=== PATIENT | female | born 1965 | race Caucasian/White ===

== ENCOUNTER 2018-04-03 05:27 | Day surgery (SDC) | payer BC ==
[2018-04-03] MEDS ORDERED: ROBINUL IV ONE (05:28)
[2018-04-03] MEDS ORDERED: DIPRIVAN 200 MG/20 ML IV ONE (05:28)
[2018-04-03] MEDS ORDERED: Ketamine HCl 50 MG/ML IJ ONE (05:28)
[2018-04-03] MEDS ORDERED: Lactated Ringers 1,000 ML IV ONE (06:49)
[2018-04-03] MEDS ORDERED: Lactated Ringers 1,000 ML IV SCH (07:00)
[2018-04-03 08:34] VITALS: O2SAT 97
[2018-04-03 08:44] VITALS: BP 132/74; PULSE 72
--- NOTE | 2018-04-03 13:03 | OP ---
SURGERY DATE/TIME: 04/03/2018 0714 PREOPERATIVE DIAGNOSIS: Anal pain and screening exam. POSTOPERATIVE DIAGNOSIS: Normal colon. PROCEDURE: Colonoscopy. SURGEON: Dr. Vidal. ANESTHESIA: MAC. Medications given by anesthesia department. HISTORY: The patient is a 52 year-old white female who reports she has been having problems with pain in the rectal region over the past several months. She reports that she will be just lying in bed at times when she will have a terrible pain in the rectum which will last anywhere from 5 to 15 minutes. She reports there is no association with bowel movements. The patient was also noted to be over the age of 50 and had not had a screening colonoscopy previously. The patient was appraised of the risks of the procedure including the risk of perforation, phlebitis, untoward reaction to medication, bleeding and missed lesions. The patient verbalized her understanding and desired to have the procedure performed. DESCRIPTION OF PROCEDURE: The patient was given the medications by the anesthesia department. She had continuous pulse oximetry, ECG monitoring, intermittent blood pressure monitoring and tidal CO2 monitoring during the examination. She was placed in the left lateral decubitus position. A digital rectal examination was performed and revealed normal anal sphincter tone, no masses and normal anal sphincter tone. The flexible Olympus pediatric colonoscope was used to intubate the rectum. A view of the colon was developed sequentially to the cecum. Upon insertion and withdrawal, including a retroflex view in the rectum, no mucosal lesions were encountered. The scope was removed from the patient who tolerated the procedure well and was sent back to OP recovery in good condition. The prep was noted to be fair to adequate.
== END 2018-04-03 08:51 | disposition home or self-care (01) ==
LOC: SDC 05:27
PROVIDERS: ATTEND Family Medicine
DX: Z12.11 Encounter for screening for malignant neoplasm of colon (principal); K62.89 Other specified diseases of anus and rectum
CPT/HCPCS: 94250; J2704

== ENCOUNTER 2019-01-17 23:10 | Emergency (ER) | payer BC ==
[2019-01-17] MEDS ORDERED: TORAdol 30 mg Injection IM ONE (23:41)
[2019-01-17] MEDS ORDERED: BABY ASPIRIN 81 MG CHEW ONE (23:48)
[2019-01-17] MEDS ORDERED: TORAdol 30 mg Injection ONE (23:49)
[2019-01-18 00:07] LABS: ALBUMIN 4.9 g/dL (3.5-5.0); ALKALINE PHOSPHATASE 74 U/L (38-126); ANION GAP 18.5 MEQ/L (5-15); BLOOD UREA NITROGEN 13 mg/dL (7-17); CHLORIDE 110 mmol/L (98-107); Calcium 9.8 mg/dL (8.4-10.2); Carbon Dioxide 22 mmol/L (22-30); Creatinine 1 0.76 mg/dL (0.52-1.04); Glucose 85 mg/dL (74-106); Potassium 3.5 mmol/L (3.5-5.1); SGOT/AST 24 U/L (14-36); SGPT/ALT 15 U/L (0-35); SODIUM 147 mmol/L (137-145); Total Protein 8.1 g/dL (6.3-8.2)
--- NOTE | 2019-01-18 00:15 | ERPHSYRPT ---
- History of Present Illness Time Seen by Provider: 01/17/19 23:25 Source: patient, police Exam Limitations: no limitations Patient Subjective Stated Complaint: Patient states shewas pulled over by police. Patient statesw chest pain stated then, checo reports taking nitro PRN Triage Nursing Assessment: checo ambulated inot ER with police present times two. Checo tearful and reporting chest pain Physician History: 53yo with anxiety/neuropathy and palpitations off and on is brought in ER by police for medical clearance. 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 patient reports having mild dull across chest pain with no agg/ releiving factors and not associated with any SOB. patient says that she got anxious when police pulled over her and she got really anxious. she does get CP whenever gets nervous. no fever/chill/cough. 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 ) Severity: mild Associated Symptoms: chest pain Allergies/Adverse Reactions: morphine Allergy (Intermediate, Verified 01/17/19 23:24) Itching oxycodone Allergy (Intermediate, Verified 01/17/19 23:24) Itching Penicillins Allergy (Intermediate, Verified 01/17/19 23:24) Itching Sulfa (Sulfonamide Antibiotics) Allergy (Intermediate, Verified 01/17/19 23:24) Itching tramadol Allergy (Intermediate, Verified 01/17/19 23:24) Itching Home Medications: Bupropion HCl Xl 150 mg [Wellbutrin XL 150 MG] 150 mg PO BID 06/21/14 [ History] Gabapentin 300 mg PO QID 06/21/14 [History] Quetiapine Fumarate [Seroquel] 50 mg PO DAILY 06/21/14 [History] clonazePAM [Klonopin] 2 mg PO BID 06/21/14 [History] Venlafaxine HCl [Effexor Xr] 150 mg PO BID 03/29/18 [History] Hx Tetanus, Diphtheria Vaccination/Date Given: Yes Hx Influenza Vaccination/Date Given: No Hx Pneumococcal Vaccination/Date Given: No Immunizations Up to Date: Yes - Review of Systems Constitutional: No Symptoms Eyes: No Symptoms Ears, Nose, & Throat: No Symptoms Respiratory: No Symptoms Cardiac: Chest Pain Abdominal/Gastrointestinal: No Symptoms Musculoskeletal: No Symptoms Skin: No Symptoms Neurological: No Symptoms Psychological: Anxiety, No Drug Abuse, No Suicidal Ideations, No Homicidal Ideations Endocrine: No Symptoms Hematologic/Lymphatic: No Symptoms - Past Medical History Pertinent Past Medical History: Yes Neurological History: Peripheral Neuropathy, TIA ENT History: No Pertinent History, Glaucoma Cardiac History: No Pertinent History Respiratory History: No Pertinent History Endocrine Medical History: No Pertinent History Musculoskeletal History: No Pertinent History GI Medical History: Hernia, Polyps History: No Pertinent History Psycho-Social History: Anxiety Female Reproductive Disorders: Abnormal Uterine Bleeding - Past Surgical History Past Surgical History: Yes Neuro Surgical History: No Pertinent History Cardiac: No Pertinent History Respiratory: No Pertinent History Gastrointestinal: Appendectomy Genitourinary: No Pertinent History Musculoskeletal: Other Female Surgical History: Other Other Surgical History: Right eye removed d/t glaucoma. tub al reversal, occular implant, plantar faciatis, tarsal tunnel. - Social History Smoking Status: Current every day smoker How long have you smoked: yes Exposure to second hand smoke: Yes Alcohol Use: None Drug Use: none Patient Lives Alone: No Significant Family History: no pertinent family hx - Female History Hx Now: No - Nursing Vital Signs Nursing Vital Signs: Initial Vital Signs Temperature 98 F 01/17/19 23:13 Pulse Rate 117 H 01/17/19 23:13 Respiratory Rate 20 01/17/19 23:13 Blood Pressure 185/104 01/17/19 23:13 O2 Sat by Pulse Oximetry 96 01/17/19 23:13 Pain Scale Pain Intensity 5 - Physical Exam General Appearance: no apparent distress, anxiety Eye Exam: PERRL/EOMI, eyes nml inspection Ears, Nose, Throat Exam: normal ENT inspection, pharynx normal Neck Exam: normal inspection, non-tender, supple, full range of motion Respiratory Exam: normal breath sounds, chest tenderness, lungs clear Cardiovascular Exam: regular rate/rhythm, normal heart sounds, normal peripheral pulses Gastrointestinal/Abdomen Exam: soft, normal bowel sounds, tenderness Back Exam: normal inspection, normal range of motion Extremity Exam: normal inspection, normal range of motion Neurologic Exam: alert, oriented x 3, cooperative, associate relations specialist II-XII nml as tested Skin Exam: normal color SpO2 Interpretation: normal SpO2: 96 O2 Delivery: Room Air - Course Nursing assessment & vital signs reviewed: Yes EKG Interpreted by Me: RATE (93), Sinus Rhythm, NORMAL AXIS, Non-specific ST Changes Ordered Tests: Active Orders 24 hr Category Date Time Status CHEST 1 VIEW (PORTABLE) Stat Exams 01/17/19 23:38 Ordered CBC W DIFF Stat Lab 01/17/19 23:37 Ordered CMP Stat Lab 01/17/19 23:45 Completed ETHYL ALCOHOL Routine Lab 01/17/19 23:45 Completed TROPONIN Q3H Lab 01/17/19 23:45 Ordered TROPONIN Q3H Lab 01/18/19 02:45 Ordered TROPONIN Q3H Lab 01/18/19 05:45 Ordered TROPONIN Q3H Lab 01/18/19 08:45 Ordered TROPONIN Q3H Lab 01/18/19 11:45 Ordered Urine Triage Profile Stat Lab 01/17/19 Uncollected Medication Summary Generic Name Dose Route Start Last Admin Trade Name Freq PRN Reason Stop Dose Admin Aspirin 325 mg 01/18/19 10:00 Ecotrin 325 Mg PO 02/17/19 09:59 QAM BRITTANEY Discontinued Medications Generic Name Dose Route Start Last Admin Trade Name Freq PRN Reason Stop Dose Admin Aspirin Confirm 01/17/19 23:48 Baby Aspirin 81 Mg Chew Administered 01/17/19 23:49 Dose 81 mg .ROUTE .STK-MED ONE Ketorolac Tromethamine 30 mg 01/17/19 23:41 01/17/19 23:49 Toradol 30 Mg Injection IM 01/17/19 23:42 30 mg STAT ONE Administration Ketorolac Tromethamine Confirm 01/17/19 23:49 Toradol 30 Mg Injection Administered 01/17/19 23:50 Dose 30 mg .ROUTE .STK-MED ONE Lab/Rad Data: Laboratory Result Diagrams 01/17/19 23:45 Laboratory Results 01/17/19 01/17/19 Range/Units 23:45 23:45 Sodium 147 H (137-145) mmol/L Potassium 3.5 (3.5-5.1) mmol/L Chloride 110 H (98-107) mmol/L Carbon Dioxide 22 (22-30) mmol/L Anion Gap 18.5 H (5-15) MEQ/L BUN 13 (7-17) mg/dL Creatinine 0.76 (0.52-1.04) mg/dL Estimated GFR > 60.0 ML/MIN Glucose 85 (74-106) mg/dL Calcium 9.8 (8.4-10.2) mg/dL Total Bilirubin 0.30 (0.2-1.3) mg/dL AST 24 (14-36) U/L ALT 15 (0-35) U/L Alkaline Phosphatase 74 (38-126) U/L Serum Total Protein 8.1 (6.3-8.2) g/dL Albumin 4.9 (3.5-5.0) g/dL Ethyl Alcohol 69 H (0-10) mg/dL - Progress Progress: improved, re-examined Progress Note: 01/18/19 00:18 SHE IS GIVEN TORADOL/ASPIRIN AND COUNSLED AND HER SX OF CHEST PAIN IS IMPROVED. NO CP ON RE EVAL. NO ACUTE EKG CHANGES, NEGATIVE INITIAL TROPS, CXR NEGATIVE. ETOH 69. I BELIEVE HER SX OF CP WAS SECONDARY TO ANXIETY, DONTTHINK SHE NEEDS ANY FURTHER WORKUP FOR HEART AND IS CLEARED MEDICALLY . SHEIS ADVISED TO FOLLOW UP WITH HER CADIOLOGIST DR. MANJARREZ IN 1 WEEKS . Counseled pt/family regarding: drug and/or alcohol abuse, lab results, diagnosis , need for follow-up, rad results, smoking cessation - Departure Departure Disposition: [facility] Clinical Impression: Alcohol abuse, Atypical chest pain, Anxiety Condition: Stable Critical Care Time: No Referrals: YANET AJ [Primary Care Provider] -
[2019-01-18 00:18] LABS: Absolute Neutrophil Ct (ANC) 5.96 (1.4-6.9); BASOPHIL % 0.3 % (0.0-0.4); Basophil (Absolute #) 0.03 (0-0.4); Eosinophil % 1.7 % (0.00-5.0); Eosinophil (Absolute #) 0.18 (0-0.5); Hematocrit 42.9 % (35-47); Hemoglobin 14.3 gm/dl (12.0-16.0); Lymphocyte (Absolute #) 3.89 (1.0-4.6); Lymphocytes % 36.4 % (24.0-44.0); Mean Cell Volume 95.5 fl (78-100); Mean Corpuscular Hemoglobin 31.8 pg (26-32); Mean Corpuscular Hgb Concent. 33.3 g/dl (32-36); Mean Platelet Volume 11.5 fl (6-9.5); Monocyte (Absolute #) 0.64 (0.0-1.3); Neutrophil % 55.6 % (36.0-66.0); Platelet Count 146 K/mm3 (150-450); Red Blood Count 4.49 M/mm3 (4.1-5.4); Red Cell Distribution Width 14.1 % (11.5-14.0); White Blood Count 10.7 K/mm3 (4.0-10.5)
[2019-01-18 00:26] VITALS: BP 128/89; PULSE 68
[2019-01-18] MEDS ORDERED: ECOTRIN 81 MG PO ONE (00:28)
[2019-01-18 00:35] VITALS: O2SAT 96
[2019-01-18 00:50] LABS: Amphetamine,Urine NEGATIVE (NEGATIVE); Barbiturate,Urine NEGATIVE (NEGATIVE); Benzodiazepine,Urine NEGATIVE (NEGATIVE); Cocaine,Urine NEGATIVE (NEGATIVE); Methadone,Urine NEGATIVE (NEGATIVE); Opiate,Urine NEGATIVE (NEGATIVE); PCP,Urine NEGATIVE (NEGATIVE); THC,Urine NEGATIVE (NEGATIVE)
[2019-01-18 02:23] LABS: Slide Review 1 YES
--- NOTE | 2019-01-18 08:48 | XRAY ---
Indication: Chest pain. Comparison: July 11, 2011. Portable apical lordotic chest again demonstrates normal heart, lungs, and bony thorax.
[2019-01-18] MEDS ORDERED: Ecotrin 325 MG PO SCH (10:00)
== END 2019-01-18 00:40 | disposition home or self-care (01) ==
LOC: ED 23:10
DX: F10.10 Alcohol abuse, uncomplicated (principal); R07.89 Other chest pain; F41.9 Anxiety disorder, unspecified
CPT/HCPCS: 36415; 71045; 80053; 80307; 84484; 85025; 96372; 99284; 99291; 99292; J1885; A9270-GY; G0480

== ENCOUNTER 2019-02-12 16:16 | Emergency (ER) | payer BC ==
--- NOTE | 2019-02-12 16:59 | ERPHSYRPT ---
- History of Present Illness Time Seen by Provider: 02/12/19 16:35 Source: patient Exam Limitations: no limitations Patient Subjective Stated Complaint: states was drinking last night and fell in her driveway striking left chest on the gravel. today is having increased pain left lateral ribs. pain increases with inspiration Triage Nursing Assessment: ambulated to room per self. skin w/d, color normal, resp shallow and guarded. holding left chest. no deformity noted. tender to touch. Physician History: Patient fell last night onto her left chest, causing her to have pain. Patient had minimal pain relief with Aleve taken three hours ago. Occurred: hours ago (13) Reason for Fall: tripped, fell from standing pos Injuries/Pain Location: chest (left sided only) Loss of Consciousness: no loss of consciousness Quality: aching, stabbing Severity of Pain-Max: severe Severity of Pain-Current: severe Modifying Factors: Improves With: other (minimal relief with Aleve taken three hours prior to coming into the emergency department). Worsens With: movement Associated Symptoms (Fall): No abdominal pain, No back pain, No confusion, No chest pain, No dizziness, No extremity injury, No headache, No lightheadedness, No muscle spasms, No nausea, No neck pain, No ringing in ears, No seizures, No shortness of breath, No slurred speech, No trouble walking, No vomiting, No vision changes Allergies/Adverse Reactions: morphine Allergy (Intermediate, Verified 02/12/19 16:26) Itching oxycodone Allergy (Intermediate, Verified 02/12/19 16:26) Itching Penicillins Allergy (Intermediate, Verified 02/12/19 16:26) Itching Sulfa (Sulfonamide Antibiotics) Allergy (Intermediate, Verified 02/12/19 16:26) Itching tramadol Allergy (Intermediate, Verified 02/12/19 16:26) Itching Home Medications: Gabapentin 300 mg PO QID 06/21/14 [History] clonazePAM [Klonopin] 2 mg PO BID 06/21/14 [History] Venlafaxine HCl [Effexor Xr] 150 mg PO BID 03/29/18 [History] Hx Tetanus, Diphtheria Vaccination/Date Given: No Hx Influenza Vaccination/Date Given: No Hx Pneumococcal Vaccination/Date Given: No - Review of Systems Constitutional: No Fever, No Lethargy Eyes: No Eye Pain, No Vision Changes Ears, Nose, & Throat: No Nose Pain, No Epistaxis, No Mouth Pain, No Loose Teeth , No Throat Pain, No Throat Swelling Respiratory: No Cough, No Dyspnea Cardiac: Chest Pain (musculoskeletal pain only at the chest), No Palpitations, No Syncope Abdominal/Gastrointestinal: No Abdominal Pain, No Nausea, No Vomiting, No Hematemesis, No Hematochezia, No Melena Genitourinary Symptoms: No Hematuria, No Flank Pain Musculoskeletal: No Back Pain, No Neck Pain, No Deformity, No Joint Pain, No Joint Swelling Skin: No Pruritis, No Rash Neurological: No Focal Weakness, No Headache, No Lethargy, No Parasthesia, No Speech Changes, No Tremors, No Vertigo Psychological: No Anxiety Hematologic/Lymphatic: No Easy Bleeding, No Easy Bruising All Other Systems: Reviewed and Negative - Past Medical History Pertinent Past Medical History: Yes Neurological History: Peripheral Neuropathy, TIA ENT History: No Pertinent History, Glaucoma Cardiac History: No Pertinent History Respiratory History: No Pertinent History Endocrine Medical History: No Pertinent History Musculoskeletal History: No Pertinent History GI Medical History: Hernia, Polyps History: No Pertinent History Psycho-Social History: Anxiety Female Reproductive Disorders: Abnormal Uterine Bleeding - Past Surgical History Past Surgical History: Yes Neuro Surgical History: No Pertinent History Cardiac: No Pertinent History Respiratory: No Pertinent History Gastrointestinal: Appendectomy Genitourinary: No Pertinent History Musculoskeletal: Other Female Surgical History: Other Other Surgical History: Right eye removed d/t glaucoma. tub al reversal, occular implant, plantar faciatis, tarsal tunnel. - Social History Smoking Status: Current every day smoker How long have you smoked: yrs Exposure to second hand smoke: Yes Alcohol Use: None Drug Use: none Patient Lives Alone: No Significant Family History: no pertinent family hx - Female History Hx Last Menstrual Period: unknown Hx Now: No - Nursing Vital Signs Nursing Vital Signs: Initial Vital Signs Temperature 98.3 F 02/12/19 16:20 Pulse Rate 91 H 02/12/19 16:20 Respiratory Rate 16 02/12/19 16:20 Blood Pressure 133/88 02/12/19 16:20 O2 Sat by Pulse Oximetry 96 02/12/19 16:20 Pain Scale Pain Intensity 10 - Brandan Coma Score Best Eye Response (Brandan): (4) open spontaneously Best Verbal Response ([place]): (5) oriented Best Motor Response ([place]): (6) obeys commands [place] Total: 15 - Physical Exam General Appearance: no apparent distress, alert Head Injury: no evidence of injury, No active bleeding, No Lopez's Sign, No contusions, No ecchymosis, No flap, No lacerations, No raccoon eyes, No swelling , No tenderness Eye Exam: PERRL/EOMI, eyes nml inspection, No scleral icterus, No pale conjunctivae ENT Exam: airway nml, evidence of ENT injury, nml ext.inspection, hearing grossly normal, No dental injury, No clear fluid (ears), No clear fluid (nose), No midface instability, No hemotympanum, No TM obscured by wax, No clotted nasal blood, No malocclusion, No oral injury Neck Exam: supple, trachea midline, full range of motion, normal alignment, normal inspection, No muscle spasm, No paraspinous muscle tender, No stiff neck , No tenderness, No mid-line tenderness, No meningismus, No lymphadenopathy Respiratory/Chest Exam: chest tenderness (left anterior chest to palpation), normal breath sounds, rib tenderness (left lower side), No respiratory distress , No ecchymosis, No crepitus, No decreased breath sounds, No wheezing, No accessory muscle use Cardiovascular Exam: normal heart sounds, regular rate/rhythm, normal peripheral pulses Gastrointestinal Exam: soft, normal bowel sounds, No tenderness, No distention, No mass, No guarding Back Exam: normal inspection, normal range of motion, No CVA tenderness, No vertebral tenderness Extremity Exam: normal inspection, normal range of motion, capillary refill <3 sec, No autumn's sign, No inflammation, No bony point tenderness Peripheral Pulses: dorsalis-pedis (R): 2+, dorsalis-pedis (L): 2+ Neurologic Exam: alert, oriented x 3, cooperative, clothing consultant II-XII nml as tested, normal mood/affect, sensation nml, No motor deficits, No sensory deficit, No motor weakness Skin Exam: normal color, warm, dry, No rash, No petechiae, No abrasion, No cyanosis, No ecchymosis, No laceration SpO2 Interpretation: normal SpO2: 96 O2 Delivery: Room Air - Course Nursing assessment & vital signs reviewed: Yes - Radiology Exams Chest X-ray Interpretation: Interpreted by me, Reviewed by me, No Pneumonia, No Pneumothorax, Nml Heart Size, No Infiltrates, Nml Mediastinum, Displaced Fracture (lateral rib number 9) Ordered Tests: Active Orders 24 hr Category Date Time Status CHEST 1 VIEW (PORTABLE) Stat Exams 02/12/19 17:26 Taken Incentive Spirometry UD RT 02/12/19 18:24 Ordered - Progress Progress: improved Progress Note: 02/12/19 18:28 Pain has significantly improved after IM Fentanyl. Patient was instructed how to do incentive spirometer at home. 02/12/19 18:34 Patient tolerated Fentanyl without any difficulty. Patient's allergy to oxycodone is itching with no rashes, no wheezing, no swelling and no syncopal or dizzy episodes Counseled pt/family regarding: lab results, diagnosis, need for follow-up, rad results - Departure Departure Disposition: Home Clinical Impression: Elevated blood pressure reading without diagnosis of hypertension Left rib fracture Qualifiers: Encounter type: initial encounter Rib fracture type: single rib Fracture type: closed Qualified Code(s): S22.32XA - Fracture of one rib, left side, initial encounter for closed fracture Condition: Good Critical Care Time: No Referrals: YANET AJ [Primary Care Provider] - 02/16/19 Instructions: Rib Fracture (DC), Preventing Falls Additional Instructions: You have one break at rib number 9 per emergency department physician interpretation. Use the incentive spirometer 10 times an hour while awake if you have pain. Do not drink alcohol while you are taking pain medication. Return to the emergency department if any shortness of breath, fever, productive cough, blood in sputum/phlegm, new type of chest pain or any other concerning signs or symptoms that were not present at today's emergency department visit for immediate re-evaluation in the emergency department. Forms: Work/School Release Form Prescriptions: Oxycodone HCl/Acetaminophen [Endocet 5-325 Tablet] 1 each PO Q6H PRN PRN #10 tablet MDD 4 PRN Reason: Moderate To Severe Pain Etodolac 400 mg [Lodine 400 mg] 400 mg PO BID PRN PRN #20 tablet PRN Reason: Pain
[2019-02-12 17:39] VITALS: PULSE 74
[2019-02-12 18:24] VITALS: BP 116/76
[2019-02-12 18:30] VITALS: O2SAT 96
--- NOTE | 2019-02-13 08:47 | XRAY ---
Indication: Left-sided chest pain following fall. Comparison: January 18, 2019. Portable chest demonstrates new nondisplaced lateral 9 acute rib fracture with mild subcutaneous emphysema and minimal bibasilar subsegmental atelectasis. Remaining heart and lungs normal.
== END 2019-02-12 18:52 | disposition home or self-care (01) ==
LOC: ED 16:16
DX: S22.32XA Fracture of one rib, left side, initial encounter for closed fracture (principal); W01.0XXA Fall on same level from slipping, tripping and stumbling without subsequent striking against object, initial encounter; Y93.89 Activity, other specified; Y92.89 Other specified places as the place of occurrence of the external cause; R03.0 Elevated blood-pressure reading, without diagnosis of hypertension
CPT/HCPCS: 71045; 99283

== ENCOUNTER 2019-05-04 01:25 | Emergency (ER) | payer BC ==
[2019-05-04 01:41] VITALS: BP 133/86; PULSE 82; O2SAT 96
[2019-05-04] MEDS ORDERED: TETRACAINE 0.5% STERI-UNIT SOL OP ONE (01:51)
[2019-05-04] MEDS ORDERED: TETRACAINE 0.5% STERI-UNIT SOL OP STA (01:52)
--- NOTE | 2019-05-04 01:52 | ERPHSYRPT ---
- History of Present Illness Time Seen by Provider: 05/04/19 01:52 Source: patient Exam Limitations: no limitations Patient Subjective Stated Complaint: pt states she has had pain in left eye since tuesday. Triage Nursing Assessment: l eye red and irritated, pt states pain 8/10, sensiive to light and very tender to touch. Physician History: painful, red and irritated left eye for her last 4 days. 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 No history of trauma to the left eye Timing/Duration: day(s) (4) Location: left eye Severity: moderate Apparent Injury: no Associated Symptoms: pain, redness, No decreased vision, No blurred vision, No double vision Visual Assistive Devices: None Chemical Exposure: No Trauma: No Welding Arc/Tanning Bed Exposure: No Allergies/Adverse Reactions: morphine Allergy (Intermediate, Verified 05/04/19 01:41) Itching oxycodone Allergy (Intermediate, Verified 05/04/19 01:41) Itching Penicillins Allergy (Intermediate, Verified 05/04/19 01:41) Itching Sulfa (Sulfonamide Antibiotics) Allergy (Intermediate, Verified 05/04/19 01:41) Itching tramadol Allergy (Intermediate, Verified 05/04/19 01:41) Itching Home Medications: Gabapentin 300 mg PO QID 06/21/14 [History] clonazePAM [Klonopin] 2 mg PO BID 06/21/14 [History] Venlafaxine HCl [Effexor Xr] 150 mg PO BID 03/29/18 [History] Hx Tetanus, Diphtheria Vaccination/Date Given: No Hx Influenza Vaccination/Date Given: No Hx Pneumococcal Vaccination/Date Given: No - Review of Systems Constitutional: No Fever, No Chills Eyes: Eye Pain, Eye Redness, Tearing, No Vision Changes, No Double Vision, No Foreign Body Sensation Ears, Nose, & Throat: No Symptoms Respiratory: No Cough, No Dyspnea Cardiac: No Chest Pain, No Edema, No Syncope Abdominal/Gastrointestinal: No Abdominal Pain, No Nausea, No Vomiting, No Diarrhea Genitourinary Symptoms: No Dysuria Musculoskeletal: No Back Pain, No Neck Pain Skin: No Rash Neurological: No Dizziness, No Focal Weakness, No Sensory Changes Psychological: No Symptoms Endocrine: No Symptoms All Other Systems: Reviewed and Negative - Past Medical History Pertinent Past Medical History: Yes Neurological History: Peripheral Neuropathy, TIA ENT History: No Pertinent History, Glaucoma Cardiac History: No Pertinent History Respiratory History: No Pertinent History Endocrine Medical History: No Pertinent History Musculoskeletal History: No Pertinent History GI Medical History: Hernia, Polyps History: No Pertinent History Psycho-Social History: Anxiety Female Reproductive Disorders: Abnormal Uterine Bleeding - Past Surgical History Past Surgical History: Yes Neuro Surgical History: No Pertinent History Cardiac: No Pertinent History Respiratory: No Pertinent History Gastrointestinal: Appendectomy Genitourinary: No Pertinent History Musculoskeletal: Other Female Surgical History: Other Other Surgical History: Right eye removed d/t glaucoma. tub al reversal, occular implant, plantar faciatis, tarsal tunnel. - Social History Smoking Status: Current every day smoker How long have you smoked: yrs Exposure to second hand smoke: Yes Alcohol Use: None Drug Use: none Patient Lives Alone: No Significant Family History: no pertinent family hx - Nursing Vital Signs Nursing Vital Signs: Initial Vital Signs Temperature 98.3 F 05/04/19 01:28 Pulse Rate 82 05/04/19 01:28 Respiratory Rate 18 05/04/19 01:28 Blood Pressure 133/86 05/04/19 01:28 O2 Sat by Pulse Oximetry 96 05/04/19 01:28 Pain Scale Pain Intensity 8 - Physical Exam General Appearance: no apparent distress Vision Acuity Degree Evaluation Phase: Uncorrected Vision Acuity Right Eye: artificial eye Vision Acuity Left Eye: No Corneal abrasion Eye Exam: left eye: PERRL, EOMI, erythema Ears, Nose, Throat Exam: normal ENT inspection Neck Exam: normal inspection, non-tender Respiratory Exam: normal breath sounds, lungs clear Cardiovascular Exam: regular rate/rhythm Gastrointestinal Exam: soft, normal bowel sounds Extremity Exam: normal inspection, normal range of motion Neurologic: alert, cooperative, supply assistant II-XII nml as tested, normal mood/affect, nml cerebellar function, nml station & gait Skin Exam: normal color Lymphatic: No adenopathy SpO2 Interpretation: normal SpO2: 96 O2 Delivery: Room Air - Course Nursing assessment & vital signs reviewed: Yes Ordered Tests: Medication Summary Discontinued Medications Generic Name Dose Route Start Last Admin Trade Name Freq PRN Reason Stop Dose Admin Tetracaine HCl 4 ml 05/04/19 01:52 05/04/19 01:58 Tetracaine 0.5% Steri-Unit Nicolette OP 05/04/19 01:53 4 ml STAT STA Administration Tetracaine HCl Confirm 05/04/19 01:51 Tetracaine 0.5% Steri-Unit Nicolette Administered 05/04/19 01:52 Dose 4 ml OP .STK-MED ONE - Progress Progress: unchanged Progress Note: 05/04/19 02:03 recommended transfer to other hospital is we do not have tonometer or slit lamp to examimne the pt's eye. .patient says it is 2:00 in the night anyway. I will go to a doctor in the morning. Patient says that she has been working every day so could not go to a doctor the last to 3 days. Counseled pt/family regarding: diagnosis - Departure Departure Disposition: Home Clinical Impression: Left eye pain Condition: Stable Critical Care Time: No Referrals: YANET AJ [Primary Care Provider] - (see helium arc welder in the morning in a few hours. Patient understood and agreed. ) Prescriptions: Erythromycin Base 3.5 gm [Erythromycin 3.5 GM OPHTH.] 1 applic OP QID 3 Days #1 tube Ofloxacin Ophth 5 ml [Ocuflox OPHTHALMIC 5 ML] 2 drops OP QID #1 bottle
== END 2019-05-04 02:20 | disposition home or self-care (01) ==
LOC: ED 01:25
DX: H57.12 Ocular pain, left eye (principal)
CPT/HCPCS: 99283

== ENCOUNTER 2020-12-11 14:04 | Emergency (ER) | payer BC ==
[2020-12-11] MEDS ORDERED: BACIGUENT PACKET ONE (16:26)
[2020-12-11] MEDS ORDERED: BACIGUENT PACKET TP ONE (16:26)
[2020-12-11 16:30] VITALS: BP 125/76; PULSE 84; O2SAT 94
--- NOTE | 2020-12-11 16:30 | ERPHSYRPT ---
- History of Present Illness Time Seen by Provider: 12/11/20 14:45 Source: patient Patient Subjective Stated Complaint: laceration to back of head. trip and fall, hit head on concrete Triage Nursing Assessment: pt to ED c/o fall and hit head on concrete, now has laceration to back of head. fall occured 12 ht ago. rates 1/10 pain. no blood thinners. bleeding controlled on arrival. Physician History: Patient is a 35-year-old female presents to emergency department for evaluation of head injury. Patient states that she was drinking alcohol approximately 12 hours ago. Patient was intoxicated fell backwards and hit her head on concrete. Questionable loss of consciousness. No neck pain. Cervical spine cleared clinically. Patient has a large laceration to the posterior aspect of her head. Pain is minimal. No associated numbness tingling or weakness. No other injuries reported. The fall according to the patient was not associated with any neuro or cardiovascular symptomology. Patient states she only wants her laceration repaired and no further work-up. Patient voices no other complaints concerns at this time. She declined pain medication. Occurred: hours ago Severity: mild Head Injury Location: occipital Loss of Consciousness: unsure Associated Symptoms: denies symptoms Allergies/Adverse Reactions: morphine Allergy (Intermediate, Verified 12/11/20 14:37) Itching oxycodone Allergy (Intermediate, Verified 12/11/20 14:37) Itching Penicillins Allergy (Intermediate, Verified 12/11/20 14:37) Itching Sulfa (Sulfonamide Antibiotics) Allergy (Intermediate, Verified 12/11/20 14:37) Itching tramadol Allergy (Intermediate, Verified 12/11/20 14:37) Itching Home Medications: Gabapentin 300 mg PO QID 06/21/14 [History] clonazePAM [Klonopin] 2 mg PO BID 06/21/14 [History] Sertraline HCl 50 mg [Zoloft 50 mg Tablet] 50 mg PO BID 12/11/20 [History] Hx Tetanus, Diphtheria Vaccination/Date Given: No Hx Influenza Vaccination/Date Given: No Hx Pneumococcal Vaccination/Date Given: No Immunizations Up to Date: No Travel Risk - International Travel Have you traveled outside of the country in past 3 weeks: No - Coronavirus Screening Are you exhibiting any of the following symptoms?: No Close contact with a COVID-19 positive Pt in past 14-21 Days: No - Vaccine Status Have you recieved a Covid-19 vaccination: No - Review of Systems Constitutional: No Symptoms, No Fever, No Chills Eyes: No Symptoms Ears, Nose, & Throat: No Symptoms Respiratory: No Symptoms, No Cough, No Dyspnea Cardiac: No Symptoms, No Chest Pain, No Edema, No Syncope Abdominal/Gastrointestinal: No Symptoms, No Abdominal Pain, No Nausea, No Vomiting, No Diarrhea Genitourinary Symptoms: No Symptoms, No Dysuria Musculoskeletal: No Symptoms, No Back Pain, No Neck Pain Skin: No Symptoms, No Rash Neurological: No Symptoms, No Dizziness, No Focal Weakness, No Sensory Changes Psychological: No Symptoms Endocrine: No Symptoms Hematologic/Lymphatic: No Symptoms Immunological/Allergic: No Symptoms All Other Systems: Reviewed and Negative - Past Medical History Pertinent Past Medical History: Yes Neurological History: Peripheral Neuropathy, TIA ENT History: Glaucoma Cardiac History: No Pertinent History Respiratory History: No Pertinent History Endocrine Medical History: No Pertinent History Musculoskeletal History: No Pertinent History GI Medical History: Hernia, Polyps History: No Pertinent History Psycho-Social History: Anxiety, Depression Female Reproductive Disorders: Abnormal Uterine Bleeding - Past Surgical History Past Surgical History: Yes Neuro Surgical History: No Pertinent History Cardiac: No Pertinent History Respiratory: No Pertinent History Gastrointestinal: Appendectomy Genitourinary: No Pertinent History Musculoskeletal: Other Female Surgical History: Other Other Surgical History: Right eye removed d/t glaucoma. tub al reversal, occular implant, plantar faciatis, tarsal tunnel. - Social History Smoking Status: Current every day smoker How long have you smoked: yrs Exposure to second hand smoke: Yes Alcohol Use: None Drug Use: none Patient Lives Alone: No Significant Family History: no pertinent family hx - Female History Hx Now: No - Nursing Vital Signs Nursing Vital Signs: Initial Vital Signs Temperature 97.1 F 12/11/20 14:30 Pulse Rate 89 12/11/20 14:30 Respiratory Rate 18 12/11/20 14:30 Blood Pressure 129/78 12/11/20 14:30 O2 Sat by Pulse Oximetry 93 L 12/11/20 14:30 Pain Scale Pain Intensity 1 - [place] Coma Score Best Eye Response (Brandan): (4) open spontaneously Best Verbal Response ([place]): (5) oriented Best Motor Response (Brandan): (6) obeys commands Brandan Total: 15 - Physical Exam General Appearance: no apparent distress, alert Eye Exam: bilateral eye: normal inspection, PERRL, EOMI ENT Exam: airway nml, No evidence of ENT injury, No dental injury, No clear fluid (ears), No clear fluid (nose) Neck Exam: supple Cardiovascular/Respiratory Exam: chest non-tender, normal breath sounds, regular rate/rhythm Gastrointestinal/Abdominal Exam: soft, non tender, no distention Back Exam: normal inspection, No vertebral tenderness Extremity Exam: non-tender, normal range of motion, normal inspection Mental Status Exam: alert, oriented x 3, cooperative Motor/Sensory Exam: no motor deficit, no sensory deficit, CN II-XII intact Skin Exam: normal color, warm, dry, No rash SpO2: 94 Procedures - Laceration/Wound Repair Head Time of Procedure: 16:33 Wound Location: head Wound Length (cm): 5 Wound's Depth, Shape: stellate Wound Explored: clean Irrigated: Yes Hibiclens Prep: Yes Wound Debrided: No debridement necessary. Patient declined local anesthesia as she preferr Wound Repaired With: [place] Number of Sutures: 9 Layer Closure?: No Sterile Dressing Applied?: Yes Splint Applied?: No Sling Applied?: No Progress: 55-year-old female with a stellate scalp laceration. Wound was irrigated. Wound was closed with 9 taj. No complications. Patient tolerated procedure well. Patient declined CT head. Will discharge AMA. 12/11/20 16:34 Ordered Tests: Active Orders 24 hr Category Date Time Status AMA [Release AMA] OM.NOW Care 12/11/20 16:25 Ordered - Progress Progress: improved Progress Note: Patient presents to our ED with a stellate scalp laceration. Patient only wants scalp repaired. Patient declined imaging studies. AMA form completed. Patient is of sound mind. Patient is appropriate to make informed and independent medical decisions. Patient understands that leaving AGAINST MEDICAL ADVICE can result in delayed diagnosis, increased risk of morbidity, mortality, short and long-term disability including . In spite of these risks, patient has decided to leave AGAINST MEDICAL ADVICE. Patient understands that she may return to our ED at any point if she reconsiders. Patient agrees to follow-up with her primary care doctor within 48 hours for reevaluation. Patient voices no other complaints or concerns at this time. We will release patient AGAINST MEDICAL ADVICE per their request. Portions of this note were created with voice recognition technology. There may be grammatical, spelling, punctuation or sound alike errors 12/11/20 16:35 Counseled pt/family regarding: diagnosis, need for follow-up - Departure Departure Disposition: Home Clinical Impression: Scalp laceration, Fall Condition: Stable Critical Care Time: No Referrals: DEBRA YUNG [Primary Care Provider] - Additional Instructions: Discharge/Care Plan TARIK FERGUSON was seen on 12/11/20 in the Emergency Room. The patient was counseled regarding Diagnosis,Lab results, Imaging studies, need for follow up and when to return to the Emergency Room. Prescriptions given: Discharge Note I have spoken with the patient and/or caregivers. I have explained the patient's condition, diagnosis and treatment plan based on the information available to me at this time. I have answered the patient's and/or caregiver's questions and addressed any concerns. The patient and/or caregivers have as good understanding of the patient's diagnosis, condition and treatment plan as can be expected at this point. The vital signs have been stable. The patient's condition is stable and appropriate for discharge from the emergency department. The patient will pursue further outpatient evaluation with the primary care physician or other designated or consulting physician as outlined in the discharge instructions. The patient and/or caregivers are agreeable to this plan of care and follow-up instructions have been explained in detail. The patient and/or caregivers have received these instruction. The patient/and or caregivers are aware that any significant change in condition or worsening of symptoms should prompt an immediate return to this or the closest emergency department or call 911.
== END 2020-12-11 16:34 | disposition home or self-care (01) ==
LOC: ED 14:04
DX: S01.01XA Laceration without foreign body of scalp, initial encounter (principal); W01.198A Fall on same level from slipping, tripping and stumbling with subsequent striking against other object, initial encounter; Y93.89 Activity, other specified; Y92.9 Unspecified place or not applicable; Y99.8 Other external cause status
CPT/HCPCS: 12002; 99283; A9270-GY

== ENCOUNTER 2020-12-29 14:57 | Emergency (ER) | payer BC ==
[2020-12-29] MEDS ORDERED: CLINDAMYCIN-D5W 900 MG/50 ML*** 900 MG/50 ML BAG IV STA (16:22)
[2020-12-29] MEDS ORDERED: Sodium Chloride 0.9% 1000 ML 1,000 ML IV STA (16:23)
--- NOTE | 2020-12-29 16:30 | ERPHSYRPT ---
- History of Present Illness Source: patient Exam Limitations: other (Poor historian) Patient Subjective Stated Complaint: Pt c/o of severe sore throat and swollen lymph nodes in her neck Triage Nursing Assessment: Pt brought self to the ER, hypertensive, rates throat pain as 8/10, thick yellow sputum, body aches head ache, swollen lymph nodes in throat Physician History: [address]/R facial edema since 12/24/20. Pt tested+ for CV19 today. She has cough/coryza/N/wo vomiting/diarrhea. Timing/Duration: gradual onset Severity: moderate ENT Location: throat Prearrival Treatment: no prearrival treatment Modifying Factors: Improves With: nothing Associated Symptoms: cough, fever, chills, facial pain/swelling, headache, jaw pain, neck pain, sore throat, difficulty swallowing, No ear pain (R), No ear pain (L), No change in hearing, No dizziness, No drooling, No ear drainage, No hearing loss, No malaise, No motion sickness, No nasal congestion/drainage, No epistaxis, No nasal foreign body, No poor fluid intake, No poor solids intake, No ringing of ears, No swollen glands, No sinus infection Allergies/Adverse Reactions: morphine Allergy (Intermediate, Verified 12/29/20 15:43) Itching oxycodone Allergy (Intermediate, Verified 12/29/20 15:43) Itching Penicillins Allergy (Intermediate, Verified 12/29/20 15:43) Itching Sulfa (Sulfonamide Antibiotics) Allergy (Intermediate, Verified 12/29/20 15:43) Itching tramadol Allergy (Intermediate, Verified 12/29/20 15:43) Itching Home Medications: Gabapentin 300 mg PO TID 06/21/14 [History] clonazePAM [Klonopin] 2 mg PO DAILY 06/21/14 [History] Sertraline HCl 50 mg [Zoloft 50 mg Tablet] 50 mg PO BID 12/11/20 [History] Prednisone 20 mg [Deltasone 20 mg] 40 mg PO DAILY 12/29/20 [History] Hx Tetanus, Diphtheria Vaccination/Date Given: No Hx Influenza Vaccination/Date Given: No Hx Pneumococcal Vaccination/Date Given: No Travel Risk - International Travel Have you traveled outside of the country in past 3 weeks: No - Coronavirus Screening Are you exhibiting any of the following symptoms?: Yes Symptoms: Fever, Cough: New Onset, Shortness of Breath, Vomiting/Diarrhea, Loss of Taste or Smell, Headaches/Body Aches/Fatigue Close contact with a COVID-19 positive Pt in past 14-21 Days: No - Vaccine Status Have you recieved a Covid-19 vaccination: No - Review of Systems Constitutional: No Symptoms, Fever Eyes: No Symptoms Ears, Nose, & Throat: No Symptoms, Throat Pain Respiratory: No Symptoms, Cough, Dyspnea Cardiac: No Symptoms Abdominal/Gastrointestinal: No Symptoms, Nausea, No Vomiting, No Diarrhea Genitourinary Symptoms: No Symptoms Musculoskeletal: No Symptoms, Injury Skin: No Symptoms Neurological: No Symptoms Psychological: No Symptoms Endocrine: No Symptoms Hematologic/Lymphatic: No Symptoms Immunological/Allergic: No Symptoms - Past Medical History Pertinent Past Medical History: Yes Neurological History: Peripheral Neuropathy, TIA ENT History: Glaucoma Cardiac History: No Pertinent History Respiratory History: No Pertinent History Endocrine Medical History: No Pertinent History Musculoskeletal History: No Pertinent History GI Medical History: Hernia, Polyps History: No Pertinent History Psycho-Social History: Anxiety, Depression Female Reproductive Disorders: Abnormal Uterine Bleeding - Past Surgical History Past Surgical History: Yes Neuro Surgical History: No Pertinent History Cardiac: No Pertinent History Respiratory: No Pertinent History Gastrointestinal: Appendectomy Genitourinary: No Pertinent History Musculoskeletal: Other Female Surgical History: Other Other Surgical History: Right eye removed d/t glaucoma. tub al reversal, occular implant, plantar faciatis, tarsal tunnel. - Social History Smoking Status: Current every day smoker How long have you smoked: yrs Exposure to second hand smoke: Yes Alcohol Use: None Drug Use: none Patient Lives Alone: No Significant Family History: no pertinent family hx - Female History Hx Now: No - Nursing Vital Signs Nursing Vital Signs: Initial Vital Signs Temperature 98.5 F 12/29/20 15:31 Pulse Rate 78 12/29/20 15:31 Respiratory Rate 14 12/29/20 15:31 Blood Pressure 146/95 12/29/20 15:31 O2 Sat by Pulse Oximetry 98 12/29/20 15:31 Pain Scale Pain Intensity 8 Mildly hypertensive - Physical Exam General Appearance: no apparent distress Eye Exam: bilateral eye: normal inspection, PERRL, EOMI Ear Exam: bilateral ear: auricle normal, canal normal, TM normal Nasal Exam: normal inspection Throat Exam: maxillary swelling, tonsillar swelling (Large R peritonsiilar abscess/Airway intact at this time) Neck Exam: normal inspection, trachea midline Cardiovascular/Respiratory Exam: normal breath sounds, regular rate/rhythm, heart sounds normal Abdominal Exam: non-tender, soft Neurologic Exam: alert, oriented x 3, 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, 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, normal mood/affect, nml cerebellar function, nml station & gait, sensation nml Skin Exam: normal color SpO2 Interpretation: normal SpO2: 98 O2 Delivery: Room Air - Course Nursing assessment & vital signs reviewed: Yes Ordered Tests: Active Orders 24 hr Category Date Time Status IV Insertion STAT Care 12/29/20 16:23 Completed Medication Summary Discontinued Medications Generic Name Dose Route Start Last Admin Trade Name Freq PRN Reason Stop Dose Admin Clindamycin HCl/Dextrose 900 mg in 50 mls @ 100 mls/hr 12/29/20 16:22 12/29/20 17:42 Clindamycin-D5w 900 Mg/50 Ml IV 12/29/20 16:51 Infused STAT STA Infusion Sodium Chloride 1,000 mls @ 999 mls/hr 12/29/20 16:23 12/29/20 17:08 Sodium Chloride 0.9% 1000 Ml IV 12/29/20 17:23 999 mls/hr .Q1H1M STA Administration Clindamycin HCl/Dextrose Confirm 12/29/20 17:05 Clindamycin-D5w 900 Mg/50 Ml Administered 12/29/20 17:06 Dose 900 mg in 50 mls @ ud IV .STK-MED ONE Sodium Chloride Confirm 12/29/20 17:05 Sodium Chloride 0.9% 1000 Ml Administered 12/29/20 17:06 Dose 1,000 mls @ ud .ROUTE .STK-MED ONE - Progress Progress Note: 12/29/20 17:05 Unable to reach ENT at [facility]/[place]. Pt accepted by Dr. Weller at [facility] 900mg IV Clindamycin 12/29/20 20:43 Pt stable w good airway when [facility] assumed care of pt Counseled pt/family regarding: diagnosis - Departure Departure Disposition: Transfer Clinical Impression: Peritonsillar abscess Condition: Stable Critical Care Time: Yes Critical Care Time(excluding separately billable procedures): Critical 30-74 mins Referrals: DEBRA YUNG MD [Primary Care Provider] -
[2020-12-29] MEDS ORDERED: Sodium Chloride 0.9% 1000 ML 1,000 ML ONE (17:05)
[2020-12-29] MEDS ORDERED: CLINDAMYCIN-D5W 900 MG/50 ML*** 900 MG/50 ML BAG IV ONE (17:05)
[2020-12-29 17:11] VITALS: BP 137/85; PULSE 68
[2020-12-29 20:44] VITALS: O2SAT 98
== END 2020-12-29 18:50 | disposition short-term general hospital (02) ==
LOC: ED 14:57
DX: J36 Peritonsillar abscess (principal); R05 Cough; R50.9 Fever, unspecified; R51.9 Headache, unspecified
CPT/HCPCS: 36000; 96365; 99285

== ENCOUNTER → 2022-08-19 | Emergency (ER) | payer BC | END | disposition left against medical advice (07) | LOC: ED 17:54 | DX: Z53.21 Procedure and treatment not carried out due to patient leaving prior to being seen by health care provider (principal) ==

== ENCOUNTER 2023-03-28 21:45 | Emergency (ER) | payer BC ==
--- NOTE | 2023-03-28 21:55 | ERPHSYRPT ---
- History of Present Illness Time Seen by Provider: 03/28/23 21:55 Source: patient Exam Limitations: no limitations Physician History: This is a 57-year-old white female patient of Dr. Yung who presents with right ankle and right foot pain swelling and bruising. Patient missed the last step on the stairs as she was leaving work. This occurred approximately 8 PM prior to arrival. Patient is able to bear weight but it hurts to do so. Method of Injury: other (Missed a step on stairs), twisted Occurred: this evening Quality: constant Severity of Pain-Max: mild Severity of Pain-Current: mild (To moderate to moderate) Lower Extremities Pain: foot: right, ankle: right Modifying Factors: Improves With: movement Associated Symptoms: other (Hurts to bear weight but can do so) Allergies/Adverse Reactions: morphine Allergy (Intermediate, Verified 03/28/23 21:57) Itching oxycodone Allergy (Intermediate, Verified 03/28/23 21:57) Itching Penicillins Allergy (Intermediate, Verified 03/28/23 21:57) Itching Sulfa (Sulfonamide Antibiotics) Allergy (Intermediate, Verified 03/28/23 21:57) Itching tramadol Allergy (Intermediate, Verified 03/28/23 21:57) Itching Home Medications: No Reportable Medications [No Reported Medications] 03/28/23 [History] Hx Tetanus, Diphtheria Vaccination/Date Given: No Hx Influenza Vaccination/Date Given: No Hx Pneumococcal Vaccination/Date Given: No Travel Risk - International Travel Have you traveled outside of the country in past 3 weeks: No - Coronavirus Screening Are you exhibiting any of the following symptoms?: No Close contact with a COVID-19 positive Pt in past 14-21 Days: No - Vaccine Status Have you recieved a Covid-19 vaccination: No - Review of Systems Constitutional: No Symptoms Eyes: No Symptoms Ears, Nose, & Throat: No Symptoms Respiratory: No Symptoms Cardiac: No Symptoms Abdominal/Gastrointestinal: No Symptoms Genitourinary Symptoms: No Symptoms Musculoskeletal: Injury (Right foot and ankle), Other (Missed last step on stairs) Skin: No Symptoms Neurological: No Symptoms Psychological: No Symptoms Endocrine: No Symptoms Hematologic/Lymphatic: No Symptoms Immunological/Allergic: No Symptoms All Other Systems: Reviewed and Negative - Past Medical History Pertinent Past Medical History: Yes Neurological History: Peripheral Neuropathy, TIA ENT History: Glaucoma Cardiac History: No Pertinent History Respiratory History: No Pertinent History Endocrine Medical History: No Pertinent History Musculoskeletal History: No Pertinent History GI Medical History: Hernia, Polyps History: No Pertinent History Psycho-Social History: Anxiety, Depression Female Reproductive Disorders: Abnormal Uterine Bleeding - Past Surgical History Past Surgical History: Yes Neuro Surgical History: No Pertinent History Cardiac: No Pertinent History Respiratory: No Pertinent History Gastrointestinal: Appendectomy Genitourinary: No Pertinent History Musculoskeletal: Other Female Surgical History: Other Other Surgical History: Right eye removed d/t glaucoma. tub al reversal, occular implant, plantar faciatis, tarsal tunnel. - Social History Smoking Status: Current every day smoker How long have you smoked: yrs Exposure to second hand smoke: Yes Alcohol Use: None Drug Use: none Patient Lives Alone: No Significant Family History: no pertinent family hx - Nursing Vital Signs Nursing Vital Signs: Initial Vital Signs Temperature 98.6 F 03/28/23 21:45 Pulse Rate 72 03/28/23 21:45 Respiratory Rate 20 03/28/23 21:45 Blood Pressure 119/77 03/28/23 21:45 O2 Sat by Pulse Oximetry 96 03/28/23 21:45 Pain Scale Pain Intensity 3 - Physical Exam General Appearance: no apparent distress, alert, anxiety Eyes, Ears, Nose, Throat Exam: normal ENT inspection, moist mucous membranes Neck Exam: normal inspection, non-tender, supple, full range of motion Cardiovascular/Respiratory Exam: chest non-tender, no respiratory distress Gastrointestinal/Abdominal Exam: non-tender Back Exam: normal inspection, normal range of motion, No CVA tenderness, No vertebral tenderness Hips Exam: bilateral: non-tender, normal inspection, normal range of motion, no evidence of injury Legs Exam: bilateral leg: non-tender, normal inspection, normal range of motion, no evidence of injury Knees Exam: bilateral knee: non-tender, normal inspection, normal range of motion, no evidence of injury Ordered Tests: Active Orders 24 hr Category Date Time Status ANKLE (3 VIEWS) Stat Exams 03/28/23 22:01 Taken FOOT (MINIMUM 3 VIEWS) Stat Exams 03/28/23 22:00 Taken - Progress Progress: unchanged, pain not gone completely Progress Note: 03/28/23 23:11 This patient's medical issue is 1 of low complexity. Level complex in the workup performed is based on review the patient's past medical history, review of the patient's medication list, review the patient's drug allergy list, history of present illness and physical findings on examination. Workup in this patient includes x-ray of the patient's right foot and right ankle. I interpreted the studies myself. Right ankle x-ray does not show any fractures or dislocations of the distal tibia or fibula. On the lateral view there appears to be a tiny avulsion fracture of the talus X-ray of the right foot shows the same tiny avulsion fracture of the talus and no other acute fractures or dislocations. Patient is refusing any type of narcotic medication and does not want crutches. Counseled pt/family regarding: diagnosis, need for follow-up, rad results Medical Desision Making - Independent Historian Additional History obtained from: Spouse - Diagnostic Testing Diagnostic test were ordered, analyzed, and reviewed by me: Yes Radiological Interpretation: Interpreted by me - Risk of complications Low Risk: Low risk of morbidity from additional dx testing or treatment - Departure Departure Disposition: Home Clinical Impression: Avulsion fracture of talus Condition: Stable Critical Care Time: No Referrals: DEBRA YUNG MD [Primary Care Provider] - Follow up/PCP as directed Additional Instructions: Ice pack/bath right foot 3 times a day for the next 48 hours. Weightbearing as tolerated. Wear Rafal wrap for comfort. Use Tylenol and ibuprofen, if there are no contraindications, for pain control. May follow-up with your can line examiner of choice or at the [facility] orthopedic clinic. This is a walk-in clinic and you do not need an appointment. It is open Tuesday through Tuesday 8 AM to 10 AM.
[2023-03-28 22:09] VITALS: TEMP 98.6
[2023-03-28 22:17] VITALS: RESP 18
[2023-03-28 23:47] VITALS: BP 112/70; PULSE 69; O2SAT 98
--- NOTE | 2023-03-29 09:01 | XRAY ---
Indication: Pain following fall. Comparison: None 3 view right ankle demonstrates 2 x 7 mm well-circumscribed ossification anterior superior talus either degenerative versus old injury. Elsewhere tiny posterior heel spur and mild soft tissue swelling. No other bony, articular, or soft tissue abnormalities.
--- NOTE | 2023-03-29 09:03 | XRAY ---
Indication: Pain following fall. Comparison: None 3 nonweightbearing views right foot demonstrates tiny minimally displaced avulsion type acute fracture involving anterolateral corner calcaneus. Elsewhere tiny posterior heel spur and tiny well-circumscribed ossification anterior superior talus either degenerative versus old injury. No other bony, articular, or soft tissue abnormalities.
== END 2023-03-29 00:05 | disposition home or self-care (01) ==
LOC: ED 21:45
DX: S92.151A Displaced avulsion fracture (chip fracture) of right talus, initial encounter for closed fracture (principal); W18.43XA Slipping, tripping and stumbling without falling due to stepping from one level to another, initial encounter; Z28.310 Unvaccinated for COVID-19; Z72.0 Tobacco use
CPT/HCPCS: 73610; 73630; 99283